=== PATIENT | female | born 1980 ===

== ENCOUNTER 2016-06-04 09:09 | Observation (INO) | payer SELFPAY ==
--- NOTE | 2016-06-04 11:01 | GHP ---
[f rep st] PREOP HISTORY AND PHYSICAL DATE OF ADMISSION: 06/04/2016 ADMITTING DIAGNOSIS: 35-year-old 2, para 1-0-0-1, at 20 weeks and 5 days, with an estimated due date of 10/17/2016, presents complaining of vaginal bleeding. HISTORY OF PRESENT COMPLAINT: Patient states bleeding began at 7:30 this morning, was dark red, sma ll amount. Denies feeling movement regularly at 20 weeks, recently returned from [facility]. Denies any falls, any trauma to abdomen. States last time she had sex was 1 month ago. Reports some mild abdominal pain. Denies contractions. Denies leaking of fluid. Denies any new gushes of blood since this morning. MEDICAL HISTORY: Denies. SURGICAL HISTORY: Knee surgery x3. Adenoid removal. Lares teeth removal. MEDICATIONS: vitamin. ALLERGIES: Tape adhesive. SYSTEMS PROGRAM MANAGER HISTORY: History of abnormal Pap in 2007, normal since. Denies history of STDs. SOCIAL HISTORY: . Denies alcohol, tobacco, or drug abuse. FAMILY HISTORY: Noncontributory. OB HISTORY: September 2013 vaginal delivery at full term, induction of labor for postdates, denies compl ications with , 7 lb 11 oz fetus. LABS: Not available. Patient is receiving care with Dr. Sheppard via [facility]. PHYSICAL EXAMINATION: VITAL SIGNS: Stable. GENERAL APPEARANCE: Alert and oriented x3. ABDOMEN: Gravid, nontender. VAGINAL: Deferred. Per sterile speculum exam, scant bloody streaks and discha rge noted. Cervix appears long, closed, and posterior. heart tones per Doppler 150s. ASSESSMENT: 35-year-old 2, para 1-0-0-1, at 20 weeks and 5 days, presents status post vagin al bleeding, resolved. PLAN: 1. heart tones. 2. Sterile speculum exam. 3. Ultrasound. Anticipate discharge to home pending stable ultrasound. /[id number]/MODL
--- NOTE | 2016-06-04 15:08 | OBPROG ---
OBG Progress Note Assessment/Plan: Assessment: 35y/o IUP @20w5d Vaginal bleeding, resolved No previa, no abruption, no subchor hemorrhage per U/S report Plan: Discharge to home Pelvic rest precautions F/U with OB provider next week Return to hospital PRN 06/04/16 15:04 Subjective: Pt doing well, reports no further episodes of vaginal bleeding. Reports +FM after ate lunch. Reassured with Dopplers and U/S. - Physical Exam General Appearance: alert, no apparent distress Neuro/Psych: alert, normal mood/affect, oriented x 3 ICD10 Worksheet Patient Problems: Problems Problem Status Onset Vaginal bleeding before 22 weeks gestation Acute - ICD10 Problem Qualifiers (1) Vaginal bleeding before 22 weeks gestation
== END 2016-06-04 14:30 | disposition home or self-care (01) ==
LOC: FLD 09:09
PROVIDERS: ADMIT Obstetrics & Gynecology; ATTEND Obstetrics & Gynecology
DX: O46.92 Antepartum hemorrhage, unspecified, second trimester (principal); Z3A.20 20 weeks gestation of pregnancy
CPT/HCPCS: G0378